=== PATIENT | female | born 1955 | race Caucasian/White ===

== ENCOUNTER → 2016-05-11 | Outpatient (CLI) | payer OTHER ==
--- NOTE | 2016-05-11 22:03 | MR ---
EXAMINATION TYPE: MR tspine/lspine wo con DATE OF EXAM: 05/11/2016 7:30 PM COMPARISON: MRI lumbar spine October 03, 2013. HISTORY: Mid & lower back pain TECHNIQUE: Multiplanar, multisequence imaging of thoracic and lumbar spine are performed without cont rast. FINDINGS: T-SPINE: Spinal cord shows normal course, caliber, and signal as it courses the thoracic spine. Vert ebral body heights and alignment are satisfactory. There is mild to moderate disc space narrowing an teriorly at T10-T11 level with heterogeneous endplate changes as there is increased T2 signal noted. No significant posterior disc herniations are seen on sagittal images. No significant spurring is not ed. Review of the axial images shows no significant spinal canal stenosis or neural foraminal narrowing a t any thoracic level. Slight nodular thickening to left adrenal gland is seen on axial image 1. IMPRESSION: No significant abnormality is seen to account for patient's symptoms. L-SPINE: FINDINGS: Sagittal images of the lumbar spine show vertebral body heights and alignment to appear sat isfactory. There is multilevel disc desiccation with mild to moderate disc space narrowing with relat sri sparing of L4-L5 level redemonstrated. Posterior disc herniations L2-L3 and L5-S1 levels are more prominent than prior exam on sagittal images. The conus medullaris remains normal in position and s ignal ending at superior L1 vertebral body level. There is some heterogeneity of bone marrow signal i ntensity. Mild multilevel anterior spurring upper lumbar levels is present. Axial images show the T12-L1 level to remain within normal limits. Axial images at L1-L2 level show mild broad disc bulge mildly effacing anterior thecal sac, bilateral neural foramina are patent. No significant change from prior study is seen. Axial images at the L2-L3 level show mild broad disc bulge with new left paracentral disc protrusion component on axial image 18 showing increased anterior thecal sac effacement. There is asymmetric mil d to moderate left-sided inferior neural foraminal narrowing now present. Right-sided neural foramen is patent. Axial images at L3-L4 level show mild to moderate broad disc bulge minimally effacing the anterior th ecal sac, bilateral neural foramina are patent. No significant change from prior study is seen. Axial images at L4-L5 level show mild facet degenerative changes bilaterally. Spinal canal is preserv ed and bilateral neural foramina are patent. No significant change from prior study is seen. Axial images at L5-S1 level show moderate facet degenerative changes bilaterally. There is redemonstr ation broad-based right lateral disc protrusion. There is minimal effacement of the anterior thecal s ac. Left-sided neural foramina remains patent. There is moderate right-sided inferior neural foramina l narrowing with encroachment along inferior right L5 nerve redemonstrated on sagittal image 13 simil ar or slightly more prominent to prior exam. IMPRESSION: Multilevel degenerative changes in the lumbar spine with some progression in findings at L2-L3 and L5-S1 levels noted since prior exam.
== END | disposition home or self-care (01) ==
LOC: RADMRIMAIN 18:03
PROVIDERS: ATTEND Nurse Practitioner Acute Care
DX: M47.816 Spondylosis without myelopathy or radiculopathy, lumbar region (principal); M54.6 Pain in thoracic spine
CPT/HCPCS: 72146; 72148

== ENCOUNTER → 2017-04-18 | Outpatient (CLI) | payer OTHER ==
[2017-04-18 16:14] LABS: Blood Urea Nitrogen 17 mg/dL (7-17)
--- NOTE | 2017-04-18 18:56 | MR ---
EXAMINATION TYPE: MR brain wo/w con DATE OF EXAM: 04/18/2017 COMPARISON: Previous exam 06/16/2011 brain MRI HISTORY: Headache TECHNIQUE: Multiplanar, multisequence images of the brain and brainstem is performed without and with IV contras t, utilizing 7 mL intravenous Gadavist . FINDINGS: Diffusion weighted images demonstrate no evidence of a recent infarct or other diffusion ab normality. There is no significant interval change in white matter signal abnormalities, scattered h yperintensities are present in the periventricular and subcortical white matter as on prior on invers ion recovery and T2-weighted sequences. Encephalomalacia is noted again some scoliosis and susceptibi lity artifact at the site of patient's prior abnormality. Craniotomy change also present. The ventric ular system and cisternal spaces are normal in size and appearance. The brain volume is age appropri ate. Midline structures demonstrate normal morphology. The craniocervical junction appears within normal limits. Post contrast images demonstrate no abnormal enhancement. The dural venous sinuses appear pa tent. The visualized sinuses are remarkable for inflammatory change in the ethmoid air cells, frontal sinus, and the globes are intact. IMPRESSION: Stable white matter signal changes. Postop change. Sinus disease.
== END | disposition home or self-care (01) ==
LOC: RADMRIMAIN 15:41
PROVIDERS: ATTEND Nurse Practitioner Acute Care
DX: R90.82 White matter disease, unspecified (principal); Z98.890 Other specified postprocedural states
CPT/HCPCS: 82565; 84520; 70553; A9581

== ENCOUNTER → 2017-06-29 | Outpatient (CLI) | payer OTHER ==
--- NOTE | 2017-07-03 13:58 | MM ---
Reason for exam: screening (asymptomatic). Last mammogram was performed 2 years and 2 months ago. History: Family history of breast cancer in grandmother. Physical Findings: A clinical breast exam by your physician is recommended on an annual basis and results should be correlated with mammographic findings. MG Screening Mammo w CAD Bilateral CC and MLO view(s) were taken. Prior study comparison: April 27, 2015, mammogram, performed at [facility]. April 23, 2015, mammogram, performed at [facility]. February 04, 2014, mammogram, performed at [facility]. The breast tissue is heterogeneously dense. This may lower the sensitivity of mammography. Finding: There are typically benign round calcifications in both breasts. There is no discrete abnormality. ASSESSMENT: Benign, BI-RAD 2 RECOMMENDATION: Routine screening mammogram of both breasts in 1 year.
== END | disposition home or self-care (01) ==
LOC: RADMAMWWP 10:36
PROVIDERS: ATTEND Family Medicine
DX: Z12.31 Encounter for screening mammogram for malignant neoplasm of breast (principal)
CPT/HCPCS: 77067

== ENCOUNTER → 2019-03-26 | Outpatient (CLI) | payer MEDICARE, OTHER ==
--- NOTE | 2019-03-26 15:17 | BD ---
EXAMINATION TYPE: Axial Bone Density DATE OF EXAM: 03/26/2019 COMPARISON: NONE CLINICAL HISTORY: M [age] Height: 5 FT 3 IN Weight: 144 FRAX RISK QUESTIONS: Alcohol (3 or more units per day): NO Family History (Parent hip fracture): NO Glucocorticoids (More than 3mos): NO (Ex: prednisone, prednisolone, methylprednisolone, dexamethasone, and hydrocortisone). History of Fracture in Adulthood: YES Secondary Osteoporosis: 1. Type 1 Diabetes: NO 2. Hyperthyroidism: NO 3. Menopause before 45: NO 4. Malnutrition: NO 5. Chronic liver disease: NO Rheumatoid Arthritis: NO Current Tobacco Use: YES RISK FACTORS HISTORY OF: Surgery to Spine/Hip(right/left)/Wrist (right/left): RT HIP SURG TENDON REPAIR When: IN 30'S Family History of Osteoporosis: YES Active: YES Postmenopausal woman: PART HYST AGE 40 NO SYMPTOMS UNTIL LATE 50'S Lost more than 2 inches in height since high school: YES MEDICATIONS: Additional Medications: ZETIA, TRAZADONE Additional History: BRAIN SURG 2009 EXAM MEASUREMENTS: Bone mineral densitometry was performed using the [employer]. Bone mineral density as measured about the Lumbar spine is: ----- L1-L4(G/cm2): 1.024 T Score Values are as follows: ----- L2: -0.9 ----- L3: -1.4 ----- L4: -1.6 ----- L1-L4: -1.3 BASELINE Bone mineral density about the R hip (g/cm2): 0.872 Bone mineral density about the L hip (g/cm2): 0.884 T Score values are as follows: -----R Neck: -1.2 -----L Neck: -1.1 -----R Total: -1.2 -----L Total: -0.8 BASELINE IMPRESSION: Osteopenia (T Score between -2.5 and -1). There is slightly increased risk of fracture and the patient may be considered for treatment. Re-Screen 2-5 years. NOTE: T-SCORE=SD OF THE YOUNG ADULT MEAN.
== END | disposition home or self-care (01) ==
LOC: RADBDWWP 13:21
PROVIDERS: ATTEND Family Medicine
DX: M85.80 Other specified disorders of bone density and structure, unspecified site (principal); R53.83 Other fatigue
CPT/HCPCS: 77080